=== PATIENT | female | born 1990 | race African-American/Black ===

== ENCOUNTER 2017-03-13 08:42 | Emergency (ER) | payer OTHER ==
[~2017-03-13 08:42] MED LIST: DOCU-109 PO; NAPR500T4 PO; OXYC-323 PO
[2017-03-13 08:55] LABS: BILIRUBIN,URINE NEGATIVE (NEG); GLUCOSE,URINE NEGATIVE (NEG); NITRITE,URINE NEGATIVE (NEG); PROTEIN,URINE >=300 mg/dL (NEG-TRACE); UROBILINOGEN,URINE 0.2 mg/dL (0.2 mg/dL)
[2017-03-13 08:59] VITALS: BP 107/73
[2017-03-13 09:01] LABS: BACTERIA,URINE MANY /HPF (0-FEW); SQUAMOUS EPITHELIAL CELL,UR MANY /LPF; WBC,URINE TNTC /HPF (0-4)
[2017-03-13 09:02] LABS: RBC,URINE FOBS /HPF (0-2)
[2017-03-13] MEDS ORDERED: PHEN100T82 PO (09:28)
[2017-03-13] MEDS ORDERED: SULF1TAB24 PO (09:28)
--- NOTE | 2017-03-13 09:29 | PHYS DOC ---
Past Medical History Past Medical History: Anxiety, Depression, Diabetes-Type I Past Surgical History: Alcohol Use: Rarely Drug Use: None Adult General Chief Complaint Chief Complaint: URINARY FREQUENCY HPI HPI Patient is a 26 year old female to the emergency department stating that she is having lower pelvic pressure. She states that she has having urinary frequency urgency and pain with urination. She states that she still has pressure after she urinates. She denies any fever, chills or any nausea or vomiting. She denies any diarrhea. She denies any vaginal discharge. Review of Systems Review of Systems Constitutional: Denies fever or chills [] Eyes: Denies change in visual acuity, redness, or eye pain [] HENT: Denies nasal congestion or sore throat [] Respiratory: Denies cough or shortness of breath [] Cardiovascular: No additional information not addressed in HPI [] GI: Denies abdominal pain, nausea, vomiting, bloody stools or diarrhea [] : dysuria denies hematuria [] Musculoskeletal: Denies back pain or joint pain [] Integument: Denies rash or skin lesions [] Neurologic: Denies headache, focal weakness or sensory changes [] Endocrine: Denies polyuria or polydipsia [] Allergies Allergies Allergies Coded Allergies Type Severity Reaction Last Updated Verified No Known Drug Allergies 09/07/13 No Physical Exam Physical Exam Constitutional: Well developed, well nourished, no acute distress, non-toxic appearance. [] HENT: Normocephalic, atraumatic, bilateral external ears normal, oropharynx moist, no oral exudates, nose normal. [] Eyes: PERRLA, EOMI, conjunctiva normal, no discharge. [] Neck: Normal range of motion, no tenderness, supple, no stridor. [] Cardiovascular:Heart rate regular rhythm, no murmur [] Lungs & Thorax: Bilateral breath sounds clear to auscultation [] Abdomen: Bowel sounds hypoactive, soft, no tenderness, no masses, no pulsatile masses. [] Skin: Warm, dry, no erythema, no rash. [] Back: No tenderness, no CVA tenderness. [] Extremities: No tenderness, no cyanosis, no clubbing, ROM intact, no edema. [] Neurologic: Alert and oriented X 3, normal motor function, normal sensory function, no focal deficits noted. [] Psychologic: Affect normal, judgement normal, mood normal. [] Current Patient Data Vital Signs Vital Signs Date Time Temp Pulse Resp B/P (MAP) Pulse Ox O2 Delivery O2 Flow Rate FiO2 03/13/17 08:59 98.3 104 18 99 Room Air 98.3 Lab Values Laboratory Tests Test 03/13/17 08:45 03/13/17 08:49 Urine Collection Type Unknown Urine Color Yellow Urine Clarity Turbid Urine pH 6.0 Urine Specific [place] 1.025 Urine Protein >=300 mg/dL (NEG-TRACE) Urine Glucose (UA) Negative mg/dL (NEG) Urine Ketones (Stick) Negative mg/dL (NEG) Urine Blood Large (NEG) Urine Nitrite Negative (NEG) Urine Bilirubin Negative (NEG) Urine Urobilinogen Dipstick 0.2 mg/dL (0.2 mg/dL) Urine Leukocyte Esterase Large (NEG) Urine RBC Fobs /HPF (0-2) Urine WBC Tntc /HPF (0-4) Urine Squamous Epithelial Cells Many /LPF Urine Bacteria Many /HPF (0-FEW) Urine Mucus Marked /LPF POC Urine HCG, Qualitative Hcg negative (Negative) EKG EKG [] Radiology/Procedures Radiology/Procedures [] Course & Med Decision Making Course & Med Decision Making Pertinent Labs and Imaging studies reviewed. (See chart for details) Urinalysis was positive for urinary tract infection with large amount leukocyte Estrace large amount of blood. Patient will be placed on Bactrim 1 tablet twice a day for the next days. Patient will also be provided with Pyridium. She was instructed that the Pyridium will cause her urine to turn range and will stain clothing. Recommended plenty of fluids such as water and cranberry juice. Recommended that she avoid cranberry juice cocktail, carbonate beverages, citrus fruits, alcohol, caffeine, and sees her considered irritants to the bladder. Patient agrees with discharge instructions treatment regimens. Recommended that she follow up with primary care physician in 7-10 days. All questions and concerns were answered at patient's bedside. Patient agrees with discharge instructions treatment regimens and follow-up recommendations. [] Dragon Disclaimer Dragon Disclaimer This electronic medical record was generated, in whole or in part, using a voice recognition dictation system. Departure Departure Impression: Primary Impression: UTI (urinary tract infection) Disposition: 01 HOME, SELF-CARE Condition: STABLE Referrals: NO PCP (PCP) Patient Instructions: Urinary Tract Infection, Elly-cr-Ijos Additional Instructions: Activity as tolerated. Drink plenty of fluids such as water and cranberry juice. Avoid cranberry juice cocktail, carbonated beverages, caffeine, alcohol, citrus fruits disease are considered irritants to the bladder. Pyridium will cause her urine to turn orange color and will stain any of your clothing if he dribble. Medication as prescribed. Follow-up with your primary care physician and to 10 days to make sure you cleared the urinary tract infection. Return back to emergency prior signs symptoms of become worse. Scripts Phenazopyridine Hcl (PYRIDIUM) 100 Mg Tablet 100 MG PO TID Y for PAIN, #9 TAB Prov: TOÑA ALVAREZ APRN 03/13/17 Sulfamethoxazole/Trimethoprim (BACTRIM DS TABLET) 1 Each Tablet 1 TAB PO BID, #14 TAB Prov: TOÑA ALVAREZ APRN 03/13/17 Problem Qualifiers Primary Impression: UTI (urinary tract infection) Urinary tract infection type: site unspecified Hematuria presence: without hematuria Qualified Codes: N39.0 - Urinary tract infection, site not specified TOÑA ALVAREZ APRN Mar 13, 2017 09:29
[2017-03-13] MEDS ORDERED: PHENAZOPYRIDINE 200 MG TABLET. PO ONE (09:30)
== END 2017-03-13 09:41 | disposition home or self-care (01) ==
LOC: ER 08:42
DX: N39.0 Urinary tract infection, site not specified (principal); E10.9 Type 1 diabetes mellitus without complications
CPT/HCPCS: 81001; 81025; 87086; 99284

== ENCOUNTER 2017-11-30 12:34 | Emergency (ER) | payer OTHER | END 2017-11-30 13:44 | disposition home or self-care (01) | LOC: ER 13:44 | DX: M67.431 Ganglion, right wrist (principal); E11.9 Type 2 diabetes mellitus without complications | CPT/HCPCS: 29125; 99283-25 ==

== ENCOUNTER → 2018-04-01 | Outpatient (CLI) | payer OTHER ==
[2017-11-30 12:42] VITALS: BP 101/57
[~2018-04-01] MED LIST changes: +NAPR-514 PO; -NAPR500T4 PO; +PHEN100T82 PO; +SULF1TAB24 PO
== END | disposition home or self-care (01) ==
LOC: LAB 10:42
PROVIDERS: ATTEND Specialist
DX: Z32.02 Encounter for pregnancy test, result negative (principal)
CPT/HCPCS: 36415; 86850; 86900; 86901; 96372; J2791

== ENCOUNTER 2018-05-04 16:29 | Inpatient (IN) | payer OTHER ==
[~2018-05-04] VITALS: Ht 170.2 cm; Wt 87.1 kg
[~2018-05-04 16:29] MED LIST changes: -OXYC-323 PO; +OXYC1TAB15 PO
[2018-05-04 16:58] VITALS: BP 116/75
[2018-05-04] MEDS ORDERED: 0.9 % SODIUM CHLORIDE 10 ML DISP.SYRIN. IV PRN (17:15)
[2018-05-04 17:45] LABS: BARBITURATES NEG (NEG); BENZODIAZEPINES NEG (NEG); CANNABINOIDS NEG (NEG); COCAINE NEG (NEG); METHADONE NEG (NEG); OPIATES NEG (NEG); PHENCYCLIDINE NEG (NEG)
[2018-05-04 17:51] LABS: BILIRUBIN,URINE NEGATIVE (NEG); CLARITY,URINE CLEAR; COLOR,URINE YELLOW; NITRITE,URINE NEGATIVE (NEG); PROTEIN,URINE NEGATIVE (NEG-TRACE)
[2018-05-04 17:52] LABS: AMPHETAMINE/METHAMPHETAMINE NEG (NEG)
[2018-05-04] MEDS: IV RINGERS,LACTATED 1000ML 1,000 ML IV SCH ×3 (17:52→21:49)
[2018-05-04 18:05] LABS: BACTERIA,URINE FEW /HPF (0-FEW); RBC,URINE 0 /HPF (0-2); SQUAMOUS EPITHELIAL CELL,UR FEW /LPF; WBC,URINE OCC /HPF (0-4)
[2018-05-04] MEDS ORDERED: ACETAMINOPHEN 500 MG TABLET PO PRN (18:15)
[2018-05-04 18:37] LABS: BASO % 0 % (0-3); EOS # 0.1 x10^3/uL (0.0-0.7); EOS % 1 % (0-3); HEMATOCRIT 33.9 % (36.0-47.0); HEMOGLOBIN 11.3 g/dL (12.0-15.5); LYMPH # 1.8 x10^3/uL (1.0-4.8); LYMPH % 14 % (24-48); MEAN CORPUSCULAR HEMOGLOBIN 30 pg (25-35); MEAN CORPUSCULAR HGB CONC 34 g/dL (31-37); MEAN CORPUSCULAR VOLUME 90 fL (79-100); MONO # 0.9 x10^3/uL (0.0-1.1); MONO % 7 % (0-9); NEUT # 10.2 x10^3uL (1.8-7.7); NEUT % 78 % (31-73); PLATELET COUNT 231 x10^3/uL (140-400); RED BLOOD COUNT 3.78 x10^6/uL (3.50-5.40); RED CELL DISTRIBUTION WIDTH 13.3 % (11.5-14.5); WHITE BLOOD COUNT 13.1 x10^3/uL (4.0-11.0)
[2018-05-04] MEDS: hydrOXYzine PAMOATE 25 MG CAPSULE PO PRN (19:21)
--- NOTE | 2018-05-04 20:14 | RAD ---
OB ultrasound dated 05/04/2018: No comparison available. Clinical Indication: Pain after injury. Findings: There is a single intrauterine gestation in cephalic presentation. The placenta is anterior and fundal in location without evidence of placental previa. The amount of amniotic fluid appears appropriate. MIRIAN equals 10.4 cm Biometrical data is as follows: BPD = 8.5 cm for 34 weeks 1 days. HC = 31.4 cm for 35 weeks 2 days. AC = 31.4 cmfor 35 weeks 2 days. FL = 6.9 cm for 35 weeks 3 days. Overall, the estimated sonographic gestational age is 35 weeks 0 days for an estimated date of delivery of 06/08/2018. Estimated weight is 2627 g. The cervix is not well visualized. There is positive movement and cardiac activity. heart rate estimated at 168 bpm. A complete survey was not performed. Impression: Single viable intrauterine gestation with estimated sonographic gestational age of 35 weeks 0 days. No acute findings.. Electronically signed by: Bud Ayon MD (05/04/2018 8:10 PM) [facility]
[2018-05-04] MEDS: BETAMET ACET&NA PHOS 30 MG/5 ML VIAL. IM SCH (21:15)
[2018-05-04] MEDS: NIFEdipine 10 MG CAPSULE PO SCH (21:30)
[2018-05-05] MEDS: hydrOXYzine PAMOATE 25 MG CAPSULE PO PRN ×3 (01:11→13:00)
[2018-05-05] MEDS: NIFEdipine 10 MG CAPSULE PO SCH ×4 (04:20→21:54)
[2018-05-05] MEDS: IV RINGERS,LACTATED 1000ML 1,000 ML IV SCH ×3 (06:22→22:18)
[2018-05-05 19:14] LABS: HEMOGLOBIN A1C 5.2 % (4.8-5.6)
[2018-05-05] MEDS: BETAMET ACET&NA PHOS 30 MG/5 ML VIAL. IM SCH (22:18)
[2018-05-06] MEDS: hydrOXYzine PAMOATE 25 MG CAPSULE PO PRN (00:54)
[2018-05-06] MEDS: NIFEdipine 10 MG CAPSULE PO SCH ×2 (04:12→09:48)
[2018-05-06] MEDS: IV RINGERS,LACTATED 1000ML 1,000 ML IV SCH ×2 (06:27→15:53)
[2018-05-06] MEDS ORDERED: DOCUSATE SODIUM 283 MG/5 ML ENEMA. PR ONE (07:30)
[2018-05-06] MEDS ORDERED: IV NORMAL SALINE 1000ML BAG 1,000 ML IV SCH ×2 (15:29)
[2018-05-06] MEDS ORDERED: IV RINGERS,LACTATED 1000ML 1,000 ML IV SCH ×2 (15:29)
[2018-05-06] MEDS ORDERED: OXYTOCIN 10 UNIT/ML VIAL. ONE ×2 (15:31→16:25)
[2018-05-06] MEDS ORDERED: ONDANSETRON PF 4 MG/2 ML VIAL. ONE (15:31)
[2018-05-06] MEDS ORDERED: MORPHINE PF 5 MG/10 ML VIAL. ONE (15:32)
[2018-05-06] MEDS ORDERED: fentaNYL PF VIAL 100 MCG/2 ML VIAL ONE (15:32)
[2018-05-06] MEDS ORDERED: BUPIVACAINE MPF 0.75% DEXTROSE 2 ML AMPUL. ONE (15:32)
[2018-05-06] MEDS ORDERED: CITRIC ACID/SODIUM CITRATE 30 ML SOLUTION. PO ONE (15:45)
[2018-05-06 15:53] LABS: HEMATOCRIT 33.9 % (36.0-47.0); HEMOGLOBIN 11.3 g/dL (12.0-15.5); RED BLOOD COUNT 3.76 x10^6/uL (3.50-5.40); RED CELL DISTRIBUTION WIDTH 13.7 % (11.5-14.5); WHITE BLOOD COUNT 17.7 x10^3/uL (4.0-11.0)
[2018-05-06] MEDS ORDERED: METOCLOPRAMIDE HCL 10 MG/2 ML VIAL. ONE (16:29)
[2018-05-06] MEDS ORDERED: FAMOTIDINE 20 MG/2 ML VIAL ONE (16:29)
[2018-05-06] MEDS ORDERED: DEXAMETHASONE SOD PHOS 20 MG/5 ML VIAL. ONE (16:29)
[2018-05-06] MEDS ORDERED: PHENYLEPHRINE in 0.9% NACL PF 1 MG/10 ML SYRINGE. IV ONE (16:29)
--- NOTE | 2018-05-06 17:12 | PDOC ---
BRIEF OPERATIVE NOTE Date: May 06, 2018 Pre-Op Diagnosis PTL RLTC/S Post-Op Diagnosis Same Procedure Performed RLTC/S Surgeon Jimmy Amplifier Mechanic None Anesthesia Type: Regional Blood Loss 700cc Specimens Obtained None Findings Female Complications none ZHANG GARCIA MD May 06, 2018 17:12
[2018-05-06] MEDS ORDERED: OXYTOCIN 30 UNIT/500 ML PREMIX 500 ML IV PRN (17:15)
[2018-05-06] MEDS ORDERED: 0.9 % SODIUM CHLORIDE 10 ML DISP.SYRIN. IV PRN (17:15)
[2018-05-06] MEDS ORDERED: ONDANSETRON PF 4 MG/2 ML VIAL. IV PRN (17:15)
[2018-05-06] MEDS ORDERED: MMR per PROTOCOL. MC PRN (17:15)
[2018-05-06] MEDS ORDERED: MAG HYDROX/ALUMINUM HYD/SIMETH 30 ML ORAL.SUSP PO PRN (17:15)
[2018-05-06] MEDS ORDERED: MAGNESIUM HYDROXIDE 2,400 MG/30 ML ORAL.SUSP. PO PRN (17:15)
[2018-05-06] MEDS ORDERED: diphenhydrAMINE ORAL ELIXIR 12.5 MG/5 ML ML PO PRN (17:15)
[2018-05-06] MEDS ORDERED: ZOLPIDEM 5 MG TABLET. PO PRN (17:15)
[2018-05-06] MEDS ORDERED: KETOROLAC 30 MG/ML VIAL. IV ONE (19:45)
[2018-05-06 20:30] VITALS: BP 140/93
[2018-05-06 21:34] VITALS: BP 121/83
[2018-05-06 22:30] VITALS: BP 120/81
[2018-05-07] MEDS: ceFAZolin SODIUM 1 GM in IV DEXTROSE 5% 50 ML IV SCH ×3 (00:04→13:51)
[2018-05-07] MEDS: IV RINGERS,LACTATED 1000ML 1,000 ML IV SCH (01:53)
[2018-05-07 02:14] VITALS: BP 112/83
[2018-05-07] MEDS ORDERED: diphenhydrAMINE HCL 25 MG CAPSULE PO PRN (02:15)
[2018-05-07] MEDS: IBUPROFEN 400 MG TABLET. PO SCH ×3 (05:06→23:30)
[2018-05-07] MEDS: oxyCODONE/APAP 5/325 1 TAB TABLET PO PRN ×4 (05:06→18:38)
[2018-05-07 05:39] VITALS: BP 122/85
[2018-05-07 07:23] LABS: BASO % 0 % (0-3); EOS % 0 % (0-3); HEMATOCRIT 29.4 % (36.0-47.0); HEMOGLOBIN 10.2 g/dL (12.0-15.5); LYMPH # 1.8 x10^3/uL (1.0-4.8); LYMPH % 9 % (24-48); MEAN CORPUSCULAR HEMOGLOBIN 31 pg (25-35); MEAN CORPUSCULAR HGB CONC 35 g/dL (31-37); MEAN CORPUSCULAR VOLUME 90 fL (79-100); MONO # 1.5 x10^3/uL (0.0-1.1); MONO % 8 % (0-9); NEUT # 15.9 x10^3uL (1.8-7.7); NEUT % 83 % (31-73); PLATELET COUNT 188 x10^3/uL (140-400); RED BLOOD COUNT 3.26 x10^6/uL (3.50-5.40); RED CELL DISTRIBUTION WIDTH 13.7 % (11.5-14.5); WHITE BLOOD COUNT 19.2 x10^3/uL (4.0-11.0)
[2018-05-07] MEDS: DOCUSATE SODIUM 100 MG CAPSULE. PO PRN (08:28)
[2018-05-07 09:47] LABS: % BANDS 4 % (0-9); % LYMPHS 10 % (24-48); % MONOS 8 % (0-10); % SEGS 78 % (35-66); PLT ESTIMATE ADEQUATE (ADEQUATE)
[2018-05-07 09:48] LABS: OVALOCYTES FEW; POLYCHROMASIA SLIGHT; TEAR DROP CELLS OCC
[2018-05-07 11:20] VITALS: BP 118/81
--- NOTE | 2018-05-07 14:59 | PDOC ---
Provider Note Provider Note Doing well VSS Dressing CDI FU in AM ZHANG GARCAI MD May 07, 2018 14:59
[2018-05-07 17:58] VITALS: BP 122/84
[2018-05-07 20:39] VITALS: BP 115/78
[2018-05-07] MEDS: SIMETHICONE 80 MG TAB.CHEW PO PRN (22:06)
[2018-05-07 23:15] VITALS: BP 115/78
[2018-05-08] MEDS: oxyCODONE/APAP 5/325 1 TAB TABLET PO PRN ×4 (05:00→21:00)
[2018-05-08 06:05] VITALS: BP 120/86
[2018-05-08] MEDS: DOCUSATE SODIUM 100 MG CAPSULE. PO PRN ×2 (07:50→17:18)
[2018-05-08] MEDS: FERROUS SULFATE 325 MG TABLET. PO SCH ×2 (07:50→17:17)
[2018-05-08] MEDS: IBUPROFEN 400 MG TABLET. PO SCH ×2 (07:50→17:18)
[2018-05-08 10:00] VITALS: BP 114/79
[2018-05-08] MEDS: SIMETHICONE 80 MG TAB.CHEW PO PRN (10:01)
[2018-05-08 13:58] VITALS: BP 110/77
[2018-05-08 17:40] VITALS: BP 117/80
[2018-05-08 21:12] VITALS: BP 115/81
[2018-05-09 04:00] VITALS: BP 135/63
[2018-05-09] MEDS: oxyCODONE/APAP 5/325 1 TAB TABLET PO PRN ×2 (06:07→13:12)
[2018-05-09] MEDS: FERROUS SULFATE 325 MG TABLET. PO SCH ×2 (08:29→16:58)
[2018-05-09] MEDS: DOCUSATE SODIUM 100 MG CAPSULE. PO PRN (08:29)
[2018-05-09] MEDS: IBUPROFEN 400 MG TABLET. PO SCH ×2 (08:30→16:58)
[2018-05-09 15:12] VITALS: BP 121/76
--- NOTE | 2018-05-09 15:32 | PDOC ---
Provider Note Provider Note Late entry 05/08/18 Doing well VSS Dressing CDI FU in AM ZHANG GARCIA MD May 09, 2018 15:32
[2018-05-09] MEDS ORDERED: DIPHTH,PERTUSS(ACELL),TET TOX 0.5 ML DISP.SYRIN. VAX IM ONE (16:00)
--- NOTE | 2018-05-09 16:08 | PDOC1 ---
OB - History Hx of Present Care: Good Care Ultrasounds: Normal mid trimester US Obstetrical Complications: Gestational Diabetes Medical Complications: None Past Family/Social History * Past Medical, Surgical, Family and Obstetric Histories reviewed from chart. Blood Type: O- Rubella: Immune RPR/VDRL: Negative GBS Status: Negative HBsAG: Negative OB - Chief Complaint & HPI Date of Admission: Date of Admission: May 04, 2018 at 16:29 Chief Complaint/History : 4 Para: 4 Reason for admission: labor Indication for : desires repeat Admission Nurse Assessment Rev: Yes OB - Admission Exam Physical Exam Vitals: VS - Last 72 Hours, by Label Date Time Temp Pulse Resp B/P (MAP) Pulse Ox O2 Delivery O2 Flow Rate FiO2 05/09/18 15:12 97.5 68 18 121/76 (91) 100 Room Air 97.5 05/09/18 08:20 Room Air 05/09/18 06:07 18 98 Room Air 05/09/18 04:00 98.1 86 135/63 (87) 100 Room Air 98.1 18 05/08/18 21:12 97.7 66 18 115/81 (92) 98 Room Air 97.7 05/08/18 21:10 Room Air 05/08/18 21:00 18 98 Room Air 05/08/18 17:40 97.6 71 20 117/80 (92) 98 Room Air 97.6 05/08/18 14:55 16 Room Air 05/08/18 13:58 98.0 72 18 110/77 (88) 100 Room Air 98.0 05/08/18 12:50 20 Room Air 05/08/18 10:00 97.4 79 20 114/79 (91) 99 Room Air 97.4 05/08/18 09:59 20 99 Room Air 05/08/18 07:15 Room Air 05/08/18 06:05 98.1 70 16 120/86 (97) 98.1 05/08/18 05:00 20 Room Air 05/07/18 23:15 97.7 84 16 115/78 (90) 98 97.7 05/07/18 20:39 97.7 84 16 115/78 97.7 05/07/18 17:58 98.2 78 18 122/84 (97) 99 98.2 05/07/18 11:20 74 16 118/81 (93) 99 Room Air 05/07/18 05:39 97.8 76 18 122/85 (97) 99 97.8 05/07/18 02:14 97.9 77 16 112/83 (93) 100 Room Air 97.9 05/06/18 22:30 98.0 77 16 120/81 (94) 100 Room Air 98.0 05/06/18 21:34 98.0 74 16 121/83 (96) 100 Room Air 98.0 05/06/18 20:30 97.9 72 18 140/93 (109) 97 Room Air 97.9 HEENT: Normal, Nasal Mucosa Normal, Oropharynx Normal, Moist Membranes, Fontanelles Normal Heart: Regular Rate Lungs: Clear, Equal Abdomen: Gravid Extremities: Normal Pulses, No tenderness or swelling Reflexes: Normal Cervical Dilatation: 2cm Effacement: 25% Membranes: Intact Amniotic Fluid: Clear Heart Rate: Normal Accelerations: Accelerations Present Decelerations: No decelerations Short Term Variability: Present Contractions on Admission: 6-10 Minutes Apart Intensity: Moderate Assessment/Plan Assessment/Plan 35 week Pre term labor Steroids Fluids expectant managment previous C/S ZHANG GARCIA MD May 09, 2018 16:08
--- NOTE | 2018-05-09 16:10 | PDOC3 ---
OB DISCHARGE SUMMARY DATE OF ADMISSION: 05/04/18 DATE OF DISCHARGE: 05/09/18 REASON FOR ADMISSION: labor PROCEDURES: Ultrasound, Mgmt of OB Complications INTRAPARTUM PROCEDURES: Spontanous Vag Deliv OPERATIONS: None DISCHARGE DIAGNOSIS: Others ( delivery) DISCHARGE INFORMATION: Activity, Diet HOSPITAL COURSE unremarkable CONDITION AT DISCHARGE Stable ZHANG GARCIA MD May 09, 2018 16:10
[2018-05-09] MEDS ORDERED: HYDR-3164 PO (16:12)
[2018-05-09] MEDS ORDERED: NAPR-514 PO (16:12)
--- NOTE | 2018-05-09 17:33 | OP ---
DATE OF SURGERY: 05/06/2018 PREOPERATIVE DIAGNOSIS: labor, previous , desires repeat . POSTOPERATIVE DIAGNOSES: labor, previous , desires repeat . PROCEDURE: Repeat low transverse . SURGEON: Simone Marquez M.D. KICK PRESS OPERATOR: None. ANESTHESIA: Regional. ESTIMATED BLOOD LOSS: 700 mL. SPECIMENS: None. FINDINGS: Female infant, Apgars 8, 9 and 9. Normal uterus, tubes and ovaries. COMPLICATIONS: None. CONDITION: Stable. DESCRIPTION OF PROCEDURE: After risks, benefits, indications, alternatives discussed in detail with the patient, the patient was brought to the OR theater, placed in the supine position with left lateral uterine displacement. After adequate regional anesthesia, the patient prepped and draped in usual sterile manner. Previous Pfannenstiel incision was taken out sharply with a scalpel, carried down through the subcutaneous tissue with Bovie cautery. Rectus fascia was nicked in midline with Bovie cautery, extended laterally in each direction with Juan scissors. Upper edge of rectus fascia was grasped x 2 with Tyler clamps, elevated above the rectus muscle, both bluntly and sharply with the Bovie cautery. The same procedure was carried out on lower edge of rectus fascia. Rectus muscle was split in midline and extended superiorly and inferiorly with Bovie cautery. Parietal peritoneum was entered bluntly with gloved hand. With gentle stretch on the rectus muscle, room was made for delivery of the infant. A low transverse hysterotomy incision was made sharply with a scalpel with care not to injure any underlying structures. Prior to this, Ryan retractor was placed with sponges placed in the gutters bilaterally. The uterine incision was extended laterally upwardly with gloved hand. Gloved hand was placed in lower uterine segment and with fundal pressure from the digital assistant infant was delivered on anterior abdominal wall. cried spontaneously and moved all extremities. Cord was doubly clamped, transected the cord between 2 clamps and the was handed to nursing care in attendance. Cord blood samples were taken. Placenta delivered spontaneously intact, 3-vessel cord. Any adherent membrane was wiped free with laparotomy sponge. Low transverse hysterotomy incision reapproximated with 0 Monocryl in a running locking manner, imbricated with 0 Monocryl in a vertical mattress stitch manner. Sponges were removed from the gutters. The bladder flap was reapproximated with 3-0 Vicryl in a running manner. Ryan retractor was removed. Rectus muscles reapproximated with 3-0 Vicryl in a running manner. Rectus fascia was reapproximated with 0 PDS in a running manner. Subcutaneous tissue was irrigated copiously with warm normal saline. Shayna fascia was reapproximated with 2-0 plain. Skin was reapproximated with Insorb beena. Sponge, needle and instrument counts were correct x 2 per nursing staff. The patient went to postop anesthesia recovery in stable condition. SIMONE MARQUEZ MD DR: NAVYA/eugenio JOB#: [id number] / [id number]
[2018-05-09 19:15] VITALS: BP 106/75
== END 2018-05-09 19:15 | disposition home or self-care (01) | DRG 787 ==
LOC: OBSVTOIN 16:29 → 3 SO LND 16:29 → 3 NORTH 05-06 20:20
PROVIDERS: ADMIT Specialist; ATTEND Specialist
PROC: 10D00Z1 Extraction of Products of Conception, Low, Open Approach (ICD-10-PCS; principal; 2018-05-06)
DX: O34.211 Maternal care for low transverse scar from previous cesarean delivery (principal); O60.10X0 Preterm labor with preterm delivery, unspecified trimester, not applicable or unspecified; Z3A.35 35 weeks gestation of pregnancy; Z37.0 Single live birth; Z86.32 Personal history of gestational diabetes; O26.893 Other specified pregnancy related conditions, third trimester; Z67.41 Type O blood, Rh negative
CPT/HCPCS: 36415; 76815; 80307; 81001; 82962; 83036; 85007; 85025; 85027; 85460; 85461; 86592; 86850; 86900; 86901; 87086; 90471; 90715; G0378; J0690; J0702; J1100; J1885; J2270; J2370; J2405; J2590; J2765; J2791; J3010; J3490; J7120; Q0163; Q0177

== ENCOUNTER 2018-07-26 10:42 | Emergency (ER) | payer MEDICAID, OTHER ==
[~2018-07-26] VITALS: Ht 170.2 cm; Wt 77.1 kg
[~2018-07-26 10:42] MED LIST changes: +HYDR-3164 PO
--- NOTE | 2018-07-26 10:55 | PHYS DOC ---
Past Medical History Past Medical History: Anxiety, Depression, Diabetes-Type I Past Surgical History: Alcohol Use: Rarely Drug Use: None Adult General Chief Complaint Chief Complaint: NAUSEA/VOMITING/DIARRHA HPI HPI Patient is a 27 year old female presented to ER today for evaluation of nausea , vomiting, diarrhea and abdominal pain for about 2 days. Patient denies any fever, no recent antibiotic use. Patient noticed some blood in her urine as well. She denies any chest pain, no trouble breathing. She denies that anybody in the family been sick like her. Review of Systems Review of Systems Constitutional: Denies fever or chills [] Eyes: Denies change in visual acuity, redness, or eye pain [] HENT: Denies nasal congestion or sore throat [] Respiratory: Denies cough or shortness of breath [] Cardiovascular: No additional information not addressed in HPI [] GI: POSITIVE FOR abdominal pain, nausea, vomiting, AND diarrhea [] : Denies dysuria or hematuria [] Musculoskeletal: Denies back pain or joint pain [] Integument: Denies rash or skin lesions [] Neurologic: Denies headache, focal weakness or sensory changes [] Endocrine: Denies polyuria or polydipsia [] All other systems were reviewed and found to be within normal limits, except as documented in this note. Current Medications Current Medications Current Medications Medications (Trade) Dose Ordered Sig/Angelito Start Time Stop Time Status Last Admin Dose Admin Info (CONTRAST GIVEN -- Rx MONITORING) 1 each PRN DAILY PRN 07/26/18 12:00 07/28/18 11:59 Iohexol (Omnipaque 300 Mg/ml) 75 ml 1X ONCE 07/26/18 12:00 07/26/18 12:01 DC 07/26/18 12:27 75 ML Ketorolac Tromethamine (Toradol 30mg Vial) 30 mg 1X ONCE 07/26/18 12:15 07/26/18 12:16 DC 07/26/18 12:35 30 MG Metoclopramide HCl (Reglan Vial) 10 mg 1X ONCE 07/26/18 13:45 07/26/18 13:46 DC 07/26/18 13:40 10 MG Morphine Sulfate (Morphine Sulfate) 4 mg 1X ONCE 07/26/18 13:45 07/26/18 13:46 DC 07/26/18 13:42 4 MG Ondansetron HCl (Zofran) 8 mg 1X ONCE 07/26/18 11:00 07/26/18 11:01 DC 07/26/18 11:21 8 MG Sodium Chloride 1,000 ml @ 1,000 mls/hr 1X ONCE 07/26/18 13:45 07/26/18 14:44 07/26/18 13:40 1,000 MLS/HR Allergies Allergies Allergies Coded Allergies Type Severity Reaction Last Updated Verified Penicillins Allergy Intermediate Rash 04/01/18 Yes Physical Exam Physical Exam Constitutional: Well developed, well nourished, no acute distress, non-toxic appearance. [] HENT: Normocephalic, atraumatic, bilateral external ears normal, oropharynx moist, no oral exudates, nose normal. [] Eyes: PERRLA, EOMI, conjunctiva normal, no discharge. [] Neck: Normal range of motion, no tenderness, supple, no stridor. [] Cardiovascular:Heart rate regular rhythm, no murmur [] Lungs & Thorax: Bilateral breath sounds clear to auscultation [] Abdomen: Bowel sounds normal, soft, Diffuse tenderness to palpation, no guarding , no rebound, no peritoneal signs, no masses, no pulsatile masses. [] Skin: Warm, dry, no erythema, no rash. [] Back: No tenderness, no CVA tenderness. [] Extremities: No tenderness, no cyanosis, no clubbing, ROM intact, no edema. [] Neurologic: Alert and oriented X 3, normal motor function, normal sensory function, no focal deficits noted. [] Psychologic: Affect normal, judgement normal, mood normal. [] Current Patient Data Vital Signs Vital Signs Date Time Temp Pulse Resp B/P (MAP) Pulse Ox O2 Delivery O2 Flow Rate FiO2 07/26/18 12:15 84 20 144/88 (106) 98 Room Air 07/26/18 10:50 97.8 97.8 Lab Values Laboratory Tests Test 07/26/18 10:45 07/26/18 10:51 07/26/18 11:02 07/26/18 11:07 Urine Collection Type Void Urine Color Yellow Urine Clarity Clear Urine pH 5.5 Urine Specific [place] 1.025 Urine Protein Negative mg/dL (NEG-TRACE) Urine Glucose (UA) Negative mg/dL (NEG) Urine Ketones (Stick) Negative mg/dL (NEG) Urine Blood Negative (NEG) Urine Nitrite Negative (NEG) Urine Bilirubin Negative (NEG) Urine Urobilinogen Dipstick 0.2 mg/dL (0.2 mg/dL) Urine Leukocyte Esterase Negative (NEG) Urine RBC 0 /HPF (0-2) Urine WBC Occ /HPF (0-4) Urine Squamous Epithelial Cells Mod /LPF Urine Bacteria 0 /HPF (0-FEW) Urine Mucus Mod /LPF POC Urine HCG, Qualitative Hcg negative (Negative) White Blood Count 7.6 x10^3/uL (4.0-11.0) Red Blood Count 4.67 x10^6/uL (3.50-5.40) Hemoglobin 13.4 g/dL (12.0-15.5) Hematocrit 41.7 % (36.0-47.0) Mean Corpuscular Volume 89 fL (79-100) Mean Corpuscular Hemoglobin 29 pg (25-35) Mean Corpuscular Hemoglobin Concent 32 g/dL (31-37) Red Cell Distribution Width 13.1 % (11.5-14.5) Platelet Count 290 x10^3/uL (140-400) Neutrophils (%) (Auto) 66 % (31-73) Lymphocytes (%) (Auto) 27 % (24-48) Monocytes (%) (Auto) 6 % (0-9) Eosinophils (%) (Auto) 2 % (0-3) Basophils (%) (Auto) 0 % (0-3) Neutrophils # (Auto) 5.0 x10^3uL (1.8-7.7) Lymphocytes # (Auto) 2.0 x10^3/uL (1.0-4.8) Monocytes # (Auto) 0.4 x10^3/uL (0.0-1.1) Eosinophils # (Auto) 0.1 x10^3/uL (0.0-0.7) Basophils # (Auto) 0.0 x10^3/uL (0.0-0.2) Sodium Level 139 mmol/L (136-145) Potassium Level 4.2 mmol/L (3.5-5.1) Chloride Level 106 mmol/L (98-107) Carbon Dioxide Level 22 mmol/L (21-32) Anion Gap 11 (6-14) Blood Urea Nitrogen 9 mg/dL (7-20) Creatinine 0.7 mg/dL (0.6-1.0) Estimated GFR (Cockcroft-Gault) 120.6 BUN/Creatinine Ratio 13 (6-20) Glucose Level 102 mg/dL (70-99) H Calcium Level 8.8 mg/dL (8.5-10.1) Total Bilirubin 0.3 mg/dL (0.2-1.0) Aspartate Amino Transferase (AST) 17 U/L (15-37) Alanine Aminotransferase (ALT) 13 U/L (14-59) L Alkaline Phosphatase 79 U/L (46-116) Total Protein 8.0 g/dL (6.4-8.2) Albumin 3.8 g/dL (3.4-5.0) Albumin/Globulin Ratio 0.9 (1.0-1.7) L Lipase 96 U/L (73-393) Glucose (Fingerstick) 100 mg/dL (70-99) H Laboratory Tests 07/26/18 11:02 Laboratory Tests 07/26/18 11:02 EKG EKG [] Radiology/Procedures Radiology/Procedures [][facility] [address] [place] [address] IMAGING REPORT Signed PATIENT: CALLIE GOMES ACCOUNT: [id number] : 1990 LOCATION: ER AGE: 27 SEX: F EXAM STATUS: REG ER ORD. PHYSICIAN: KIRAN WALKER DO REASON: ABDOMINAL PAIN, NAUSEA, VOMITING PROCEDURE: CT ABD PELV W/ IV CONTRST ONLY CT ABD PELV W/ IV CONTRST ONLY Indication: ABDOMINAL PAIN, NAUSEA, VOMITING
IV OMNI 300 75 MLS
PREVIOUS Exposure: One or more of the following individualized dose reduction techniques were utilized for this examination: 1. Automated exposure control 2. Adjustment of the mA and/or kV according to patient size 3. Use of iterative reconstruction technique. Comparison: April 26, 2015, some images are available, no report available. Contrast: Intravenous contrast was given. No oral contrast per request. Findings: Lung bases are clear. Liver and spleen unremarkable. Pancreas appears unremarkable. No adrenal mass. Calcification within the lateral mid right kidney is stable. Symmetric renal enhancement. No hydronephrosis. No calcified gallstone. Aorta nonaneurysmal. No significant lymph node enlargement. No evidence of acute colitis. The appendix appears to be within normal limits. Mild diffuse distention of small bowel loops with gas and fluid. Loops measure up to 2.5 cm diameter. No evidence of significant ascites or pneumoperitoneum. No evidence of pelvic mass. Urinary bladder is grossly unremarkable, incompletely distended. Vertebral body height and alignment are intact. No aggressive bone destruction IMPRESSION: 1. Mild small bowel distention, most likely an ileus. Mild or low-grade obstruction is not excludable but considered less likely. 2. No no other acute findings. Electronically signed by: Bud Valero MD (07/26/2018 12:35 PM) [facility] DICTATED and SIGNED BY: BUD VALERO MD DATE: 07/26/18 1229 Course & Med Decision Making Course & Med Decision Making Pertinent Labs and Imaging studies reviewed. (See chart for details) Patient tolerated PO INTAKE IN THE ER without any problem. She was given IV fluid, felt much better. She does not have clinical signs of obstruction. will discharge her home. Dragon Disclaimer Dragon Disclaimer This electronic medical record was generated, in whole or in part, using a voice recognition dictation system. Departure Departure Impression: Primary Impression: Gastroenteritis Disposition: 01 HOME, SELF-CARE Condition: IMPROVED Referrals: ZHANG GARCIA MD (PCP) Patient Instructions: Viral Gastroenteritis KIRAN WALKER DO Jul 26, 2018 10:55
[2018-07-26] MEDS ORDERED: ONDANSETRON PF 4 MG/2 ML VIAL. IV ONE (11:00)
[2018-07-26] MEDS ORDERED: IV NORMAL SALINE 1000ML BAG 1,000 ML IV ONE ×2 (11:00→13:45)
[2018-07-26 11:17] LABS: BASO % 0 % (0-3); EOS # 0.1 x10^3/uL (0.0-0.7); EOS % 2 % (0-3); HEMATOCRIT 41.7 % (36.0-47.0); HEMOGLOBIN 13.4 g/dL (12.0-15.5); LYMPH % 27 % (24-48); MEAN CORPUSCULAR HEMOGLOBIN 29 pg (25-35); MEAN CORPUSCULAR HGB CONC 32 g/dL (31-37); MEAN CORPUSCULAR VOLUME 89 fL (79-100); MONO # 0.4 x10^3/uL (0.0-1.1); MONO % 6 % (0-9); NEUT % 66 % (31-73); PLATELET COUNT 290 x10^3/uL (140-400); RED BLOOD COUNT 4.67 x10^6/uL (3.50-5.40); RED CELL DISTRIBUTION WIDTH 13.1 % (11.5-14.5); WHITE BLOOD COUNT 7.6 x10^3/uL (4.0-11.0)
[2018-07-26 11:17] LABS: BILIRUBIN,URINE NEGATIVE (NEG); CLARITY,URINE CLEAR; COLOR,URINE YELLOW; NITRITE,URINE NEGATIVE (NEG); PH,URINE 5.5; PROTEIN,URINE NEGATIVE (NEG-TRACE); UROBILINOGEN,URINE 0.2 mg/dL (0.2 mg/dL)
[2018-07-26 11:24] LABS: CALCIUM 8.8 mg/dL (8.5-10.1); CREATININE 0.7 mg/dL (0.6-1.0); GFR 120.6; POTASSIUM 4.2 mmol/L (3.5-5.1)
[2018-07-26 11:30] LABS: ALBUMIN 3.8 g/dL (3.4-5.0); ALBUMIN/GLOBULIN RATIO 0.9 (1.0-1.7); TOTAL BILIRUBIN 0.3 mg/dL (0.2-1.0)
[2018-07-26 11:33] LABS: SQUAMOUS EPITHELIAL CELL,UR MOD /LPF
[2018-07-26 11:34] LABS: BACTERIA,URINE 0 /HPF (0-FEW); RBC,URINE 0 /HPF (0-2); WBC,URINE OCC /HPF (0-4)
[2018-07-26] MEDS ORDERED: IOHEXOL 300 MG/ML 100ML VIAL. IV ONE (12:00)
[2018-07-26] MEDS ORDERED: CONTRAST GIVEN. MC PRN (12:00)
[2018-07-26] MEDS ORDERED: KETOROLAC 30 MG/ML VIAL. IV ONE (12:15)
--- NOTE | 2018-07-26 12:37 | RAD ---
CT ABD PELV W/ IV CONTRST ONLY Indication: ABDOMINAL PAIN, NAUSEA, VOMITING
IV OMNI 300 75 MLS
PREVIOUS Exposure: One or more of the following individualized dose reduction techniques were utilized for this examination: 1. Automated exposure control 2. Adjustment of the mA and/or kV according to patient size 3. Use of iterative reconstruction technique. Comparison: April 26, 2015, some images are available, no report available. Contrast: Intravenous contrast was given. No oral contrast per request. Findings: Lung bases are clear. Liver and spleen unremarkable. Pancreas appears unremarkable. No adrenal mass. Calcification within the lateral mid right kidney is stable. Symmetric renal enhancement. No hydronephrosis. No calcified gallstone. Aorta nonaneurysmal. No significant lymph node enlargement. No evidence of acute colitis. The appendix appears to be within normal limits. Mild diffuse distention of small bowel loops with gas and fluid. Loops measure up to 2.5 cm diameter. No evidence of significant ascites or pneumoperitoneum. No evidence of pelvic mass. Urinary bladder is grossly unremarkable, incompletely distended. Vertebral body height and alignment are intact. No aggressive bone destruction IMPRESSION: 1. Mild small bowel distention, most likely an ileus. Mild or low-grade obstruction is not excludable but considered less likely. 2. No no other acute findings. Electronically signed by: Bud Valero MD (07/26/2018 12:35 PM) [facility]
[2018-07-26] MEDS ORDERED: MORPHINE SULFATE 4 MG/ML VIAL. IV ONE (13:45)
[2018-07-26] MEDS ORDERED: METOCLOPRAMIDE HCL 10 MG/2 ML VIAL. IV ONE (13:45)
[2018-07-26 13:49] VITALS: BP 114/82
--- NOTE | 2018-08-05 15:35 | NUR ---
Late entry made to Medical Record. IV Stop time transcribed from eMAR to IV spreadsheet
== END 2018-07-26 14:50 | disposition home or self-care (01) ==
LOC: ER 10:42
DX: K52.9 Noninfective gastroenteritis and colitis, unspecified (principal); E10.9 Type 1 diabetes mellitus without complications; Z88.0 Allergy status to penicillin
CPT/HCPCS: 36415; 74177; 80053; 81001; 81025; 82962; 83690; 85025; 96361; 96374; 96375; 99284; J1885; J2270; J2405; J2765; J7030; Q9967

== ENCOUNTER 2018-09-27 16:36 | Emergency (ER) | payer MEDICAID, OTHER ==
[~2018-09-27] VITALS: Ht 170.2 cm; Wt 79.4 kg
[2018-09-27 16:46] VITALS: BP 147/112
[2018-09-27] MEDS ORDERED: predniSONE 20 MG TABLET PO ONE (17:00)
--- NOTE | 2018-09-27 17:11 | PHYS DOC ---
Past Medical History Past Medical History: Anxiety, Depression, Diabetes-Type I Past Surgical History: Alcohol Use: Rarely Drug Use: None Adult General Chief Complaint Chief Complaint: COUGH HPI HPI 27 y/o female presents to ER for c/o 6 day hx of cough and congestion. She denies fever, vomiting or diarrhea, chest pain, or palpitations. Patient states she stopped smoking approximately one month ago. Patient states the past couple of days her cough went from nonproductive to productive with yellowish phlegm. Patient reports she's had generalized fatigue denying any focal weakness. She denies urinary sxs. She reports d/t control she doesn't have monthly menses. Pt has been taking over the counter cold/cough medications with minimal relief in sxs. Review of Systems Review of Systems Constitutional: Denies fever or chills. Reports generalized Eyes: Denies change in visual acuity, redness, or eye pain [] HENT: Denies nasal congestion or sore throat [] Respiratory: Denies shortness of breath. Reports prod. cough Cardiovascular: Denies CP/tightness GI: Denies abdominal pain, nausea, vomiting, bloody stools or diarrhea [] : Denies dysuria or hematuria [] Musculoskeletal: Denies back/neck pain or joint pain [] Integument: Denies rash or skin lesions [] Neurologic: Denies headache, focal weakness or sensory changes. Denies dizziness All other systems were reviewed and found to be within normal limits, except as documented in this note. Current Medications Current Medications Current Medications Medications (Trade) Dose Ordered Sig/Angelito Start Time Stop Time Status Last Admin Dose Admin Prednisone (Prednisone) 40 mg 1X ONCE 09/27/18 17:00 09/27/18 17:01 DC 09/27/18 17:33 40 MG Allergies Allergies Allergies Coded Allergies Type Severity Reaction Last Updated Verified Penicillins Allergy Intermediate Rash 04/01/18 Yes Physical Exam Physical Exam Constitutional: Well developed, well nourished, no acute distress, non-toxic appearance. [] HENT: Normocephalic, atraumatic, bilateral external ears normal, oropharynx moist, no oral exudates, nose normal. [] Eyes: Pupils equal, conjunctiva normal, no discharge. [] Neck: Normal range of motion, no tenderness, supple, no stridor. [] Cardiovascular: Heart rate regular rhythm 98 during initial exam, no murmur [] Lungs & Thorax: Bilateral breath sounds clear to auscultation- diminished air movement throughout all lung steiner- less movement in bases. Resp. equal/nonlabored. Speaking in full sentences. 100% RA O2 sat during exam Abdomen: Bowel sounds normal, soft, no tenderness Back: No tenderness, full ROM Extremities: No tenderness, no cyanosis, no clubbing, ROM intact, no edema. [] Neurologic: Alert and oriented X 3, normal motor function, normal sensory function, no focal deficits noted. [] Psychologic: Affect normal, judgement normal, mood normal. [] Current Patient Data Vital Signs Vital Signs Date Time Temp Pulse Resp B/P (MAP) Pulse Ox O2 Delivery O2 Flow Rate FiO2 09/27/18 16:46 98.2 111 20 147/112 (124) 99 Room Air 98.2 EKG EKG [] Radiology/Procedures Radiology/Procedures PROCEDURE: CHEST PA & LATERAL PA and lateral chest. HISTORY: Cough PA and lateral views were taken of the chest. Lungs are clear. Heart is normal in size. There is no pleural effusion. IMPRESSION: 1. No acute chest disease. Electronically signed by: Murphy Muniz MD (09/27/2018 5:28 PM) [id number] DICTATED and SIGNED BY: MURPHY MUNIZ MD DATE: 09/27/181727 Course & Med Decision Making Course & Med Decision Making Pertinent Imaging studies reviewed. (See chart for details) Pt was evaluated in the ER for complaints of productive cough and congestion. On exam patient was found to have diminished air movement throughout all lung steiner. Patient was provided with dose of prednisone and had DuoNeb treatment administered. Patient had chest x-ray obtained with no acute findings. X-ray results were discussed with patient. On reexamination following treatments patient has increased air movement throughout all lung steiner and reports she is feeling much better. On reevaluation patient is in no visible distress with equal nonlabored respirations. Lung sounds are clear throughout. Discussed plans for home discharge with prescription for prednisone and an albuterol inhaler. Patient reports she is a smoker and has had yellow productive cough- discussed possible bronchitis and so will provide patient with prescription for doxycycline. Patient encouraged to increase fluid intake and follow-up with her primary care physician if symptoms persist or with any concerns. Smoking cessation was discussed. Education provided on signs and symptoms to return to ER for an discharge instructions were discussed. Pt is comfortable with home discharge plan as discussed. Dragon Disclaimer Dragon Disclaimer This electronic medical record was generated, in whole or in part, using a voice recognition dictation system. Departure Departure Impression: Primary Impression: Bronchitis Disposition: 01 HOME, SELF-CARE Condition: STABLE Referrals: ZHANG GARCIA MD (PCP) Patient Instructions: Bronchitis, Cough, Adult Additional Instructions: Increase fluid intake daily. Tylenol and/or ibuprofen as needed for pain/fever control as directed on container. Avoid smoking. If symptoms persist follow-up with your primary doctor for re-evaluation and further care. Scripts Albuterol Sulfate (Proair Hfa) 8.5 Gm Hfa.aer.ad 1 PUFF INH PRN Q6HRS PRN for COUGH, #1 INHALER 0 Refills Prov: BAUTISTA RICHARDS APRN 09/27/18 Doxycycline Hyclate (DOXYCYCLINE HYCLATE) 100 Mg Tablet 1 TAB PO BID, #14 TAB 0 Refills Prov: BAUTISTA RICHARDS APRN 09/27/18 Prednisone (PREDNISONE) 20 Mg Tablet 2 TAB PO DAILY, #8 TAB 0 Refills Start on 09/28/18 Prov: BAUTISTA RICHARDS APRN 09/27/18 BAUTISTA RICHARDS APRN Sep 27, 2018 17:11
[2018-09-27] MEDS ORDERED: PRED20TA PO (17:16)
[2018-09-27] MEDS ORDERED: DOXY100T PO (17:16)
[2018-09-27] MEDS ORDERED: ALBU2.5V8 INH (17:18)
--- NOTE | 2018-09-27 17:30 | RAD ---
PA and lateral chest. HISTORY: Cough PA and lateral views were taken of the chest. Lungs are clear. Heart is normal in size. There is no pleural effusion. IMPRESSION: 1. No acute chest disease. Electronically signed by: Murphy Muniz MD (09/27/2018 5:28 PM) [id number]
== END 2018-09-27 17:33 | disposition home or self-care (01) ==
LOC: ER 16:36
DX: J40 Bronchitis, not specified as acute or chronic (principal); R53.83 Other fatigue; F41.9 Anxiety disorder, unspecified; F32.9 Major depressive disorder, single episode, unspecified; E10.9 Type 1 diabetes mellitus without complications; Z98.890 Other specified postprocedural states; Z87.891 Personal history of nicotine dependence; Z88.0 Allergy status to penicillin
CPT/HCPCS: 71046; 99284; J7512